=== PATIENT | female | born 1995 | race Two or more races ===

== ENCOUNTER 2016-11-19 22:35 | Emergency (ER) | payer SELFPAY ==
[~2016-11-19] VITALS: Ht 170.2 cm; Wt 74.8 kg
--- NOTE | 2016-11-19 23:13 | Emergency Room Report ---
History of Present Illness General Chief Complaint: Nausea Source: Patient Present Illness HPI Is a 21-year-old female with no past medical history. She presents with chief complaint of feeling nauseous and dizzy. [place] weak. No fever or chills but hand and sweaty. Denies any chest pain. Denies any urinary complaint. No other viral symptoms. Allergies: Coded Allergies: No Known Allergies (Unverified , 11/19/16) Patient History Past Medical History: none, see triage record, old chart reviewed Past Surgical History: none Pertinent Family History: none Social History: Denies: smoking Now: No Immunizations: other Reviewed Nursing Documentation: PMH: Agreed, PSxH: Agreed Nursing Documentation-PMH Past Medical History: No Stated History Review of Systems Constitutional: Reports: weakness Eye: Denies: blurred vision, eye pain ENT: Denies: ear pain, nose congestion, throat swelling Respiratory: Denies: cough, shortness of breath Cardiovascular: Denies: chest pain, palpitations Gastrointestinal: Denies: abdominal pain, diarrhea, nausea, vomiting Musculoskeletal: Denies: back pain, joint pain Skin: Denies: rash Neurological: Denies: headache, numbness Endocrine: Denies: increased thirst, increased urine Hematologic/Lymphatic: Denies: easy bruising All Other Systems: negative except mentioned in HPI Physical Exam Vital Signs Date Time Temp Pulse Resp B/P Pulse Ox O2 Delivery O2 Flow Rate FiO2 11/19/16 23:02 98.1 98 20 124/63 100 Room Air vitals unremarkable Sp02 EP Interpretation: reviewed, normal General Appearance: well appearing, no apparent distress, alert Head: normocephalic, atraumatic Eyes: bilateral eye EOMI, bilateral eye PERRL ENT: hearing grossly normal, normal pharynx Neck: full range of motion, supple, no meningismus Respiratory: chest non-tender, lungs clear, normal breath sounds Cardiovascular #1: regular rate, rhythm, no murmur Gastrointestinal: normal bowel sounds, non tender, no mass, no organomegaly, no bruit, non-distended Musculoskeletal: back normal, gait/station normal, normal range of motion Psychiatric: mood/affect normal Skin: warm/dry Medical Decision Making Diagnostic Impression: Primary Impression: Nausea in adult patient ER Course She presents with vague nausea. Not . No evidence of infection. He drinking water here without a problem. Labs unremarkable. We'll discharge home. May be an early gastroenteritis. No evidence of obstruction. No evidence of acute abdomen. Lab Results Impression labs normal Last Vital Signs Date Time Temp Pulse Resp B/P Pulse Ox O2 Delivery O2 Flow Rate FiO2 11/19/16 23:02 98.1 98 20 124/63 100 Room Air Status: improved Disposition: HOME, SELF-CARE Condition: Stable Patient Instructions: Nausea and Vomiting, Adult Additional Instructions: Followup with your Dr. in 7 days. Return if worse. LUCY VALIENTE M.D. Nov 19, 2016 23:13
[2016-11-19 23:40] LABS: BASOPHILS % (AUTO) 1.1 % (0.0-2.0); EOSINOPHILS % (AUTO) 0.5 % (0.0-3.0); LYMPHOCYTES % (AUTO) 33.7 % (20.0-45.0); MEAN CORPUSCULAR HEMOGLOBIN 25.7 PG (27.0-31.0); MEAN CORPUSCULAR HGB CONC 32.4 G/DL (32.0-36.0); MEAN CORPUSCULAR VOLUME 79 FL (80-99); MEAN PLATELET VOLUME 7.1 FL (6.5-10.1); MONOCYTES % (AUTO) 5.9 % (1.0-10.0); NEUTROPHILS % (AUTO) 58.8 % (45.0-75.0); PLATELET COUNT 260 K/UL (150-450); RED BLOOD COUNT 5.48 M/UL (4.20-5.40); RED CELL DISTRIBUTION WIDTH 12.1 % (11.6-14.8); WHITE BLOOD COUNT 7.1 K/UL (4.8-10.8)
[2016-11-20] LABS: ANION GAP 15 (5-15); CALCIUM 9.3 mg/dL (8.6-10.2); CARBON DIOXIDE 26 mEQ/L (20-30); CHLORIDE 99 mEQ/L (98-107); CREATININE 0.8 mg/dL (0.5-0.9); GLOMERULAR FILTRATION RATE > 60 mL/min (>60); HEMOLYSIS 4; POTASSIUM 3.7 mEQ/L (3.4-4.9); SODIUM 140 mEQ/L (135-145)
[2016-11-20 00:33] LABS: APPEARANCE,URINE CLEAR; KETONES,URINE NEGATIVE (NEGATIVE); LEUKOCYTE ESTERASE ,URINE NEGATIVE (NEGATIVE); NITRITE,URINE NEGATIVE (NEGATIVE); PH,URINE 7 (4.5-8.0); PROTEIN,URINE NEGATIVE (NEGATIVE); UROBILINOGEN,URINE NORMAL MG/DL (0.0-1.0)
[2016-11-20 00:34] LABS: RBC,URINE 0 /HPF (0 - 2); SQUAMOUS EPITHELIAL CELL,UR FEW /LPF (NONE/OCC); WBC,URINE 0 /HPF (0 - 2)
[2016-11-20] MEDS ORDERED: ZOFRAN4 MG ORAL (00:43)
[2016-11-20 00:58] VITALS: BP 119/72
== END 2016-11-20 00:59 | disposition home or self-care (01) ==
LOC: EMR 23:15
DX: R11.0 Nausea (principal); R42 Dizziness and giddiness; R53.1 Weakness
CPT/HCPCS: 36415; 80048; 81001; 81025; 85025; 96374; 96375; 99284; J2405

== ENCOUNTER 2017-03-04 00:04 | Emergency (ER) | payer SELFPAY ==
[~2017-03-04] VITALS: Ht 170.2 cm; Wt 74.8 kg
[~2017-03-04 00:04] MED LIST: ZOFRAN4 MG ORAL
[2017-03-04] MEDS ORDERED: NKM (00:15)
[2017-03-04] MEDS ORDERED: IBUPROFEN600 MG ORAL (01:39)
[2017-03-04] MEDS ORDERED: ROBAXIN-750750 MG PO (01:39)
[2017-03-04 01:53] VITALS: BP 118/79
--- NOTE | 2017-03-04 02:51 | Emergency Room Report ---
History of Present Illness General Chief Complaint: Multiple Trauma/Fall Source: Patient Present Illness HPI 21YOF walk-in with syncope and fall. Patient alleges was at top of flight of 12 stairs, felt dizzy, warm, nauseated, vision closed, then fell down stairs. C/o pain to back of neck, forehead, and left thumb. Was able to stand up and walk after the alleged fall. Denies being on ASA, blood thinners. Has felt this wave of symptoms before, ?low BP. Never passed out before. Denies other medical problems. Denies pertinent family history. Allergies: Coded Allergies: No Known Allergies (Unverified , 11/19/16) Patient History Past Medical History: none Past Surgical History: none Pertinent Family History: none Social History: Denies: alcohol use, drug use, smoking Last Menstrual Period: 4 days ago Now: No Immunizations: UTD Reviewed Nursing Documentation: PMH: Agreed, PSxH: Agreed Nursing Documentation-PMH Past Medical History: No Stated History Review of Systems All Other Systems: negative except mentioned in HPI Physical Exam Vital Signs Date Time Temp Pulse Resp B/P Pulse Ox O2 Delivery O2 Flow Rate FiO2 03/04/17 00:08 98.8 86 16 118/79 98 Room Air Sp02 EP Interpretation: reviewed, normal General Appearance: normal inspection, well appearing, no apparent distress, alert, GCS 15, non-toxic, other - Smiling, interacting, texting on phone Head: normocephalic, other - Abrasion to midline of nose. Hematome right/ central forehead Eyes: bilateral eye EOMI, bilateral eye PERRL ENT: normal ENT inspection, hearing grossly normal, normal voice Neck: normal inspection, full range of motion, supple, no bony tend, other - Right paravertebral/midline c-spine ttp. Full ROM. No obvious trauma or deformity Respiratory: normal inspection, lungs clear, normal breath sounds, no respiratory distress, no retraction, no wheezing Cardiovascular #1: regular rate, rhythm, no edema Gastrointestinal: normal inspection, normal bowel sounds, non tender, soft, no guarding, no hernia Genitourinary: no CVA tenderness Musculoskeletal: normal inspection, back normal, normal range of motion, Jacob' s Sign negative, other - Left hand: obvious ecchymoses to palmar aspect/base of left thumb. Thumb ROM intact. No other trauma or ttp to exam of left hand Neurologic: normal inspection, alert, oriented x3, responsive, block saw operator III-XII nml as tested, motor strength/tone normal, speech normal Psychiatric: normal inspection, judgement/insight normal, mood/affect normal Skin: normal inspection, normal color, no rash Lymphatic: normal inspection Medical Decision Making Diagnostic Impression: Primary Impression: Fall Qualified Codes: W19.XXXA - Unspecified fall, initial encounter Additional Impressions: Head contusion Qualified Codes: S00.03XA - Contusion of scalp, initial encounter Left thumb sprain Qualified Codes: S63.642A - Sprain of metacarpophalangeal joint of left thumb , initial encounter ER Course Syncope - VSS. Afebrile. - Preceding symptoms c/w vasovagal syncope - No significantly known PMHx or family history to warrant blood testing, imaging - ECG is NSR. No arrythmia. Normal QTc Head/neck contusion - CT head, C-spine negative for acute trauma - C-spine CT shows lordosis, likely muscle spasm - Improved with analgesia and muscle relaxer No open wounds requiring tetanus or lac repair Advised PMD followup for syncope workup Rx analgesia DC home EKG Diagnostic Results Rate: normal Rhythm: NSR ST Segments: no acute changes ASA given to the pt in ED: No Other X-Ray Diagnostic Results X-Ray ordered: Left hand # of Views/Limited Vs Complete: 3 View Interpretation: no fractures, no dislocation, no soft tissue swelling Indication: Pain Impression: No acute disease Date Electronically Signed: Mar 04, 2017 Time Electronically Signed: 02:50 Interpreting ER Physician: Jerry Last Vital Signs Date Time Temp Pulse Resp B/P Pulse Ox O2 Delivery O2 Flow Rate FiO2 03/04/17 01:53 98.8 16 118/79 98 Room Air 03/04/17 00:08 86 Status: improved Disposition: HOME, SELF-CARE Condition: Improved Scripts Ibuprofen* (MOTRIN*) 600 Mg Tablet 600 MG ORAL THREE TIMES A DAY for For Pain for 7 Days, #30 TAB 0 Refills Prov: WILLAM FLORES M.D. 03/04/17 Methocarbamol* (ROBAXIN-750*) 750 Mg Tablet 750 MG PO TID for 7 Days, #30 TAB 0 Refills Prov: WILLAM FLORES M.D. 03/04/17 Patient Instructions: Syncope, [id number] Additional Instructions: - CT of your head and C-spine (neck) do not show any acute traumatic injury - Xray of your hand is also negative for fracture or dislocation - Take Ibuprofen with Robaxin every 8hours as needed for pain, neck tension - Follow up with your primary care doctor in 2-3 days to evaluate you for causes of syncope WILLAM FLORES M.D. Mar 04, 2017 02:51
--- NOTE | 2017-03-04 08:51 | Diagnostic Imaging Report ---
Indications: Fall, neck injury and pain Technique: Continuous helical CT imaging of the cervical spine performed with automatic exposure was on a Siemens sensation [address] scanner. Axial, coronal and sagittal images reconstructed at 3 mm slice thicknesses. CTDI volume(s): 17 mGy Total DLP: 372 mGy-cm Findings: Comparison: None. Lordotic curvature is reversed.Vertebral alignment is intact. No fracture, facet subluxation or dislocation, prevertebral soft tissue swelling, or other acute changes are demonstrated. No degenerative or other chronic changes are demonstrated. IMPRESSION: Reversal of cervical lordosis. This may be secondary to positioning and/or muscular spasm. Otherwise negative noncontrast CT scan of the cervical spine-no other evidence of acute injury. This correlates with [employer] preliminary report The CT scanner at [facility] is accredited by the [employer] and the scans are performed using protocols designed to limit radiation exposure to as low as reasonably achievable to attain images of sufficient resolution adequate for diagnostic evaluation.
--- NOTE | 2017-03-04 08:52 | Diagnostic Imaging Report ---
Indications: Syncope, fall, head trauma, pain Technique: Continuous helical CT imaging of the brain was performed with automatic exposure control on a Siemens sensation [address] scanner. Axial and coronal images were reconstructed at 5 mm slice thickness and interval. CTDI volume(s): 70 mGy Total DLP: 1382 mGy-cm Findings: Comparison: None. Intracranial anatomy is unremarkable. No evidence of mass or hemorrhage, other attenuation abnormality, mass effect, midline shift, hydrocephalus or increased intracranial pressure. Bone window images are unremarkable. Visualized paranasal sinuses and mastoid air cells are clear. IMPRESSION: Negative noncontrast CT scan of the brain --no evidence of acute injury. This correlates with [employer] preliminary report. The CT scanner at [facility] is accredited by the [employer] and the scans are performed using protocols designed to limit radiation exposure to as low as reasonably achievable to attain images of sufficient resolution adequate for diagnostic evaluation.
--- NOTE | 2017-03-04 12:08 | Diagnostic Imaging Report ---
Indications: Fall, left hand injury and pain Technique: 3 views left hand. Findings: Comparison: None No fracture, dislocation, joint space widening , surrounding soft tissue swelling/foreign body/gas, or other acute changes are identified. IMPRESSION: No evidence of acute injury to the left hand.
--- NOTE | 2017-03-05 20:04 | Cardiology Report ---
APPROVED REPORT EKG Measurement Heart [id number] Normal sinus rhythm Normal ECG
== END 2017-03-04 01:53 | disposition home or self-care (01) ==
LOC: EMR 01:36
DX: S00.83XA Contusion of other part of head, initial encounter (principal); S63.682A Other sprain of left thumb, initial encounter; S60.222A Contusion of left hand, initial encounter; W10.8XXA Fall (on) (from) other stairs and steps, initial encounter; Y92.89 Other specified places as the place of occurrence of the external cause; R55 Syncope and collapse; R51 Headache
CPT/HCPCS: 70450; 72125; 93005; 99284